=== PATIENT | male | born 1965 | race Caucasian/White ===

== ENCOUNTER 2017-09-05 12:47 | Inpatient (IN) | payer MEDICAID, OTHER ==
[~2017-09-05] VITALS: Ht 182.9 cm; Wt 87.1 kg
[2017-09-05] MEDS ORDERED: DiphenhydrAMINE HCL 25 MG CAPSULE PO ONE (13:15)
[2017-09-05] MEDS ORDERED: LORazepam 2 MG TABLET PO ONE (13:15)
[2017-09-05] MEDS ORDERED: HALOPERIDOL 5 MG TABLET PO ONE (13:15)
[2017-09-05 13:28] LABS: BASOPHILS % (AUTO) 1.2 % (0.0-2.0); EOSINOPHILS % (AUTO) 1.1 % (1.0-6.0); HEMATOCRIT 42.9 % (41-53); HEMOGLOBIN 15.3 g/dL (13.5-17.5); LYMPHOCYTES # (AUTO) 2.5 K/uL (1.0-4.8); LYMPHOCYTES % (AUTO) 19.3 % (22.0-44.0); MEAN CORPUSCULAR HEMOGLOBIN 31.5 pg (26.0-34.0); MEAN CORPUSCULAR HGB CONC 35.7 G/dL (31.0-37.0); MEAN CORPUSCULAR VOLUME 88 fL (80-100); MONOCYTES # (AUTO) 0.8 K/uL (0.1-1.0); MONOCYTES % (AUTO) 6.1 % (2.0-9.0); NEUTROPHILS # (AUTO) 9.3 K/uL (1.8-7.7); NEUTROPHILS % (AUTO) 72.3 % (40.0-70.0); PLATELET COUNT (AUTO) 345 K/uL (150-450); RED BLOOD CELL COUNT(AUTO) 4.86 MIL/uL (4.50-5.90); RED CELL DISTRIBUTION WIDTH 12.9 % (11.5-14.5)
[2017-09-05 13:38] LABS: ANION GAP 9 mmol/L (8-16); CALCIUM, TOTAL 8.4 mg/dL (8.8-10.5); CARBON DIOXIDE 24 mmol/L (22-29); CHLORIDE 103 mmol/L (98-107); CREATININE 0.99 mg/dL (0.60-1.30); GLOMERULAR FILTR. RATE CALC > 60 mL/min (>60); GLUCOSE,RANDOM 125 mg/dL (70-110); SODIUM SERUM 136 mmol/L (136-145); UREA NITROGEN, BLOOD 15 mg/dL (7-18)
[2017-09-05 13:43] LABS: ALANINE AMINOTRANSFERASE 33 U/L (12-78); ALBUMIN 3.6 g/dL (3.4-5.0); ALKALINE PHOSPHATASE 100 U/L (46-116); ASPARTATE AMINOTRANSFERASE 33 U/L (15-37); BILIRUBIN,TOTAL 0.5 mg/dL (0.1-1.0); TOTAL PROTEIN, SERUM 7.1 g/dL (6.4-8.2)
[2017-09-05] MEDS ORDERED: LORazepam 2 MG/ML VIAL IM ONE (13:45)
[2017-09-05] MEDS ORDERED: HALOPERIDOL LACTATE 5 MG/ML VIAL IM ONE (13:45)
[2017-09-05] MEDS ORDERED: DiphenhydrAMINE HCL 50 MG/ML VIAL IM ONE (13:45)
[2017-09-05] MEDS ORDERED: HALOPERIDOL 5 MG TABLET PO PRN (16:45)
[2017-09-05] MEDS ORDERED: ZOLPIDEM TARTRATE 10 MG TABLET PO PRN (16:45)
[2017-09-05 19:43] VITALS: BP 134/82
[2017-09-06 06:22] VITALS: BP 118/74
[2017-09-06] MEDS: OLANZapine 5 MG TABLET PO SCH ×2 (08:19→16:46)
[2017-09-06] MEDS: NICOTINE 21 MG/24 HOUR PATCH TD SCH (08:20)
[2017-09-06 08:32] VITALS: BP 111/62
[2017-09-06 09:47] LABS: CHOL/HDL RATIO 2.7 (4.2-7.3)
[2017-09-06 16:05] VITALS: BP 111/83
[2017-09-06] MEDS: LORazepam 2 MG TABLET PO PRN (16:46)
[2017-09-07 05:14] VITALS: BP 116/75
[2017-09-07] MEDS: NICOTINE 21 MG/24 HOUR PATCH TD SCH (08:21)
[2017-09-07] MEDS: OLANZapine 5 MG TABLET PO SCH ×2 (08:21→16:59)
[2017-09-07] MEDS: LORazepam 2 MG TABLET PO PRN ×2 (08:21→16:59)
[2017-09-07 08:23] VITALS: BP 115/82
[2017-09-07 16:08] VITALS: BP 118/63
[2017-09-08 02:47] VITALS: BP 122/78
[2017-09-08 08:06] VITALS: BP 118/80
[2017-09-08] MEDS: OLANZapine 5 MG TABLET PO SCH ×2 (08:08→16:25)
[2017-09-08] MEDS: NICOTINE 21 MG/24 HOUR PATCH TD SCH (08:08)
[2017-09-08 16:22] VITALS: BP 129/88
[2017-09-08] MEDS: LORazepam 2 MG TABLET PO PRN (16:25)
[2017-09-09 06:32] VITALS: BP 128/80
[2017-09-09 08:28] VITALS: BP 112/78
[2017-09-09] MEDS: OLANZapine 5 MG TABLET PO SCH ×2 (08:49→16:30)
[2017-09-09] MEDS: NICOTINE 21 MG/24 HOUR PATCH TD SCH (08:49)
[2017-09-09] MEDS: LORazepam 2 MG TABLET PO PRN ×2 (08:49→16:30)
[2017-09-09 16:13] VITALS: BP 114/64
[2017-09-10 01:48] VITALS: BP 125/62
[2017-09-10 08:04] VITALS: BP 106/68
[2017-09-10] MEDS: OLANZapine 5 MG TABLET PO SCH (08:16)
[2017-09-10] MEDS: NICOTINE 21 MG/24 HOUR PATCH TD SCH (08:17)
[2017-09-10] MEDS ORDERED: OLAN5TAB2 PO (11:31)
== END 2017-09-10 13:15 | disposition home or self-care (01) | DRG 751 ==
LOC: EMS 12:49 → B3A 18:33
PROVIDERS: ADMIT Psychiatry & Neurology Psychiatry; ATTEND Psychiatry & Neurology Psychiatry
DX: F29 Unspecified psychosis not due to a substance or known physiological condition (principal); Z91.19 Patient's noncompliance with other medical treatment and regimen; F41.9 Anxiety disorder, unspecified; R45.87 Impulsiveness; R45.4 Irritability and anger; F17.200 Nicotine dependence, unspecified, uncomplicated; Z81.8 Family history of other mental and behavioral disorders
CPT/HCPCS: 90472; 99285; G0480; J1200; J1630; J2060